=== PATIENT | male | born 1975 | race African-American/Black ===

== ENCOUNTER 2019-08-24 16:53 | Emergency (ER) | payer MEDICAID, OTHER ==
[~2019-08-24] VITALS: Ht 185.4 cm; Wt 70.0 kg
[2019-08-24 17:41] VITALS: BP 112/55
== END 2019-08-24 22:39 | disposition left against medical advice (07) ==
LOC: ER 16:53
DX: Z53.21 Procedure and treatment not carried out due to patient leaving prior to being seen by health care provider (principal)
CPT/HCPCS: 93005